=== PATIENT | male | born 2005 | race Caucasian/White ===

== ENCOUNTER 2025-06-01 18:58 | Emergency (ER) | payer BC, SELFPAY ==
[2025-06-01 19:05] VITALS: BP 140/80; PULSE 113; TEMP 36.6; O2SAT 96; BMI 39.1
--- NOTE | 2025-06-01 19:19 | XR_ITS ---
[place] [id number] Patient Name: LEIGHANN SYED MRN: [id number] date: 2005 Sex: M Assigned Patient Location: ED.MAIN Current Patient Location: ED.MAIN Accession/Order Number: [id number] Exam Date: 06/01/2025 19:40 Report Date: 06/01/2025 20:17 At the request of: DELLA DILLON Procedure: XR foot LT min 3V 3 views left ankle plain film COMPARISON: None HISTORY: Rolled left ankle. Left foot and ankle pain ACUTE FINDINGS: None DEGENERATIVE CHANGE: Unremarkable SOFT TISSUE FINDINGS: Unremarkable JOINT EFFUSION: None POSTOP CHANGES: None BONE MINERALIZATION: Adequate XR/XR ankle LT min 3V IMPRESSION: No acute findings. 3 views left foot No acute displaced fracture. Adequate alignment. Unremarkable soft tissues. IMPRESSION: No acute displaced fracture Impression dictated by: Duke Mendosa M.D. 06/01/2025 8:17 PM [facility]ictation [facility] Electron[facility] authenticated by: [id number] Y Date: 06/01/2025 20:17
--- NOTE | 2025-06-01 19:19 | XR_ITS ---
[place] [id number] Patient Name: LEIGHANN SYED MRN: [id number] date: 2005 Sex: M Assigned Patient Location: ED.MAIN Current Patient Location: ED.MAIN Accession/Order Number: [id number] Exam Date: 06/01/2025 19:40 Report Date: 06/01/2025 20:17 At the request of: DELLA DILLON Procedure: XR foot LT min 3V 3 views left ankle plain film COMPARISON: None HISTORY: Rolled left ankle. Left foot and ankle pain ACUTE FINDINGS: None DEGENERATIVE CHANGE: Unremarkable SOFT TISSUE FINDINGS: Unremarkable JOINT EFFUSION: None POSTOP CHANGES: None BONE MINERALIZATION: Adequate XR/XR foot LT min 3V IMPRESSION: No acute findings. 3 views left foot No acute displaced fracture. Adequate alignment. Unremarkable soft tissues. IMPRESSION: No acute displaced fracture Impression dictated by: Duke Mendosa M.D. 06/01/2025 8:17 PM Dictation Location: [facility] Electronically authenticated by: [id number] Y Date: 06/01/2025 20:17
--- NOTE | 2025-06-01 19:23 | ED.GENADUL1 ---
HPI HPI - General Adult General Chief complaint: Extremity Injury, Lower Stated complaint: Extremity Injury, Lower Time Seen by Provider: 06/01/25 19:19 Source: patient Mode of arrival: walk-in Limitations: no limitations History of Present Illness HPI narrative: Patient is a 20-year-old male who presents to the emergency department with complaints of left foot/ankle pain after he rolled his ankle at about noon today. He states that his family urged him to come in and get an x-ray as he has been limping around. He states he has rolled his ankle a few times before. He does complain of some ecchymosis and has tried ibuprofen and ice thus far. He denies any numbness or tingling to his left foot. Related Data Allergies Allergy/AdvReac Type Severity Reaction Status Date / Time No Known Drug Allergies Allergy Verified 06/01/25 19:05 Review of Systems ROS Status of ROS 10 or more systems reviewed and unremarkable except as noted in history and below PFSH PFSH Social History Little interest or pleasure in doing things: not at all Feeling down, depressed, or hopeless: not at all Exam Narrative Exam Narrative: General: No distress, age-appropriate, ambulating with steady but antalgic gait Skin: Warm, dry, no pallor. No rash. Head: Normocephalic, atraumatic. Neck: Supple, non-tender. Eye: Pupils are equal, round and EOMI. No scleral icterus. Ears, Nose, Mouth, and Throat: No nasal mucosal hypertrophy. Oral mucosa is moist, no posterior oropharynx erythema, uvula is mid-line Cardiovascular: Regular Rate and Rhythm without murmur, gallop or rub. Respiratory: No accessory muscle use or respiratory distress. Lungs are clear to auscultation, no wheezing, rales or rhonchi Chest Wall: no tenderness Back: No midline thoracic or lumbar vertebral tenderness. Musculoskeletal: Full ROM of all extremities, no calf or popliteal tenderness, base of the 4th/5th left metatarsals, cuboid's, lateral cuneiform tender with palpation, negative anterior drawer test, negative lateral tilt, mild left lateral foot swelling and ecchymosis GI: Abdomen is soft, non-distended, non tender to palpation. No masses appreciated. No rebound, guarding, or rigidity noted. Neurological: A&O x4. No cranial nerve dysfunction observed. No truncal ataxia. Moves all extremities. Sensation intact. Psychiatric: Cooperative and interactive. Normal mood and affect. Constitutional Vital Signs, click to edit/add: Last Vital Signs Temp 98 F 06/01/25 19:05 Pulse 113 H 06/01/25 19:05 Resp 18 06/01/25 19:05 Pulse Ox 96 06/01/25 19:05 O2 Del Method Room Air 06/01/25 19:05 Course Vital Signs Vital signs: Vital Signs Temperature 98 F 06/01/25 19:05 Pulse Rate 113 H 06/01/25 19:05 Respiratory Rate 18 06/01/25 19:05 Pulse Oximetry 96 06/01/25 19:05 Oxygen Delivery Method Room Air 06/01/25 19:05 Temperature 98 F 06/01/25 19:05 Pulse Rate 113 H 06/01/25 19:05 Respiratory Rate 18 06/01/25 19:05 Pulse Oximetry 96 06/01/25 19:05 Oxygen Delivery Method Room Air 06/01/25 19:05 Medical Decision Making [facility] Narrative Medical decision making narrative: 20-year-old male presented to the emergency department with complaints of left foot/ankle pain after rolling his ankle today. X-ray left foot and ankle ordered. X-rays reviewed and radiological read negative. Patient updated with results. I recommended a walking boot and crutches if needed. He has a boot at home and will try boot and crutches as well if needed. We dischssed continuing with OTC NSAIDs, ice, rest, and elevation. 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 I did provide him with the name of her orthopedic physician should he have persistent pain in 7 to 10 days to consider repeat x-rays. Patient was discharged in good condition to home. Differential Diagnosis Differential Diagnosis: Metatarsal fracture, foot sprain Imaging Data Left Foot and Ankle X-rays: Attestation: I have reviewed the pertinent imaging results. Radiologist's impression: ITS Impressions Ankle X-Ray 06/01/25 19:19 IMPRESSION: No acute findings. 3 views left foot No acute displaced fracture. Adequate alignment. Unremarkable soft tissues. IMPRESSION: No acute displaced fracture Impression dictated by: Duke Mendosa M.D. 06/01/2025 8:17 PM Dictation Location: [place] Electronically authenticated by: [id number] Y Date: 06/01/2025 20:17 Foot X-Ray 06/01/25 19:19 IMPRESSION: No acute findings. 3 views left foot No acute displaced fracture. Adequate alignment. Unremarkable soft tissues. IMPRESSION: No acute displaced fracture Impression dictated by: Duke Mendosa M.D. 06/01/2025 8:17 PM Dictation Location: [place] Electronically authenticated by: [id number] Y Date: 06/01/2025 20:17 Discharge Plan Discharge Chief Complaint: Extremity Injury, Lower Clinical Impression: Foot sprain Qualifiers: Encounter type: initial encounter Laterality: left Qualified Code(s): S93.602A - Unspecified sprain of left foot, initial encounter Patient Disposition: Home, Self-Care Time of Disposition Decision: 20:31 Condition: Good Mode of Transportation: Private Vehicle Print Language: Citizen Of [place] Instructions: Crutch Instructions (ED), Foot Sprain (ED), Cold Compress or Soak (ED), Walking Boot (ED) Additional Instructions: Wear your walking boot that you have at home, weightbearing as tolerated on your left foot. If you still have pain in the boot use crutches as needed. Continue with [id number] NSAIDs, ibuprofen, Motrin, or Tylenol, ice, and elevation. Follow-up with Ortho in 7 to 10 days if foot pain is persistent or not improving. Return to the emergency department for any new or worsening symptoms. Referrals: Neo Agee DO [Physician, Orthopedics] - As needed Physician,Non-Staff, [Primary Care Provider] - 1 week
--- NOTE | 2025-06-01 19:37 | PC.NURSE ---
this patient complains of left ankle pain and after twisting his left ankle while at home, onset today around 12:00 pm
--- NOTE | 2025-06-01 20:50 | PC.NURSE ---
i gave this patient verbal and written discharge orders and this patient voices yes to understanding these. at time of discharge order this patient vices no concerns, needs and shows no signs of distress
== END 2025-06-01 20:51 | disposition home or self-care (01) ==
PROVIDERS: Emergency Provider Emergency Medicine; Family Provider Family Medicine
DX: S93.602A Unspecified sprain of left foot, initial encounter (principal); M79.672 Pain in left foot; M25.572 Pain in left ankle and joints of left foot
CPT/HCPCS: 73610; 73630; 99283